=== PATIENT | male | born 1960 | race Caucasian/White ===

== ENCOUNTER → 2017-03-05 | Outpatient (CLI) | payer MEDICAID ==
[~2017-03-05] MED LIST: DIVA250T4 PO; HYDR-3240 PO; PHEN100C PO; PHEN60TA PO
== END | disposition home or self-care (01) ==
LOC: CFH 13:02
PROVIDERS: ATTEND Physician Assistant
DX: S22.030D Wedge compression fracture of third thoracic vertebra, subsequent encounter for fracture with routine healing (principal); S22.040D Wedge compression fracture of fourth thoracic vertebra, subsequent encounter for fracture with routine healing; S22.050D Wedge compression fracture of T5-T6 vertebra, subsequent encounter for fracture with routine healing; M51.44 Schmorl's nodes, thoracic region; M40.294 Other kyphosis, thoracic region; X58.XXXD Exposure to other specified factors, subsequent encounter; S92.334A Nondisplaced fracture of third metatarsal bone, right foot, initial encounter for closed fracture; S92.344A Nondisplaced fracture of fourth metatarsal bone, right foot, initial encounter for closed fracture; F32.9 Major depressive disorder, single episode, unspecified
CPT/HCPCS: 72146; 77080

== ENCOUNTER 2017-04-15 06:03 | Emergency (ER) | payer MEDICAID ==
[~2017-04-15] VITALS: Ht 162.6 cm; Wt 74.5 kg
[2017-04-15 06:05] VITALS: BP 133/82
[2017-04-15] MEDS ORDERED: IBUPROFEN 200 MG TABLET ONE (06:53)
[2017-04-15] MEDS ORDERED: IBUPROFEN 200 MG TABLET PO ONE (07:00)
[2017-04-15] MEDS ORDERED: BACITRACIN ZINC OINT 500U/GM, 0.9 GM ONE (07:07)
[2017-04-15 07:13] LABS: ASPARTATE AMINO TRANSFERASE 12 U/L (15-37); BLOOD UREA NITROGEN 14 mg/dL (7-18)
== END 2017-04-15 07:58 | disposition home or self-care (01) ==
LOC: ED 07:14
DX: S60.416A Abrasion of right little finger, initial encounter (principal); S60.414A Abrasion of right ring finger, initial encounter; S09.90XA Unspecified injury of head, initial encounter; F17.210 Nicotine dependence, cigarettes, uncomplicated; V19.9XXA Pedal cyclist (driver) (passenger) injured in unspecified traffic accident, initial encounter; Y93.89 Activity, other specified; Y99.8 Other external cause status; Y92.488 Other paved roadways as the place of occurrence of the external cause
CPT/HCPCS: 36415; 80053; 82306; 83970; 85025; 99284

== ENCOUNTER 2017-10-26 09:49 | Emergency (ER) | payer MEDICAID ==
[~2017-10-26] VITALS: Ht 172.7 cm; Wt 61.9 kg
[2017-10-26 09:50] VITALS: BP 114/78
== END 2017-10-26 10:23 | disposition home or self-care (01) ==
LOC: ED 10:17
DX: M79.672 Pain in left foot (principal); M79.671 Pain in right foot; G40.909 Epilepsy, unspecified, not intractable, without status epilepticus
CPT/HCPCS: 99281

== ENCOUNTER 2017-11-03 17:38 | Emergency (ER) | payer MEDICAID ==
[~2017-11-03] VITALS: Ht 167.6 cm; Wt 63.0 kg
[2017-11-03 17:50] VITALS: BP 110/65
== END 2017-11-03 18:57 | disposition home or self-care (01) ==
LOC: ED 18:55
DX: R53.83 Other fatigue (principal); F15.10 Other stimulant abuse, uncomplicated; G40.909 Epilepsy, unspecified, not intractable, without status epilepticus; M81.0 Age-related osteoporosis without current pathological fracture
CPT/HCPCS: 99283

== ENCOUNTER 2017-11-05 10:16 | Emergency (ER) | payer MEDICAID ==
[~2017-11-05] VITALS: Ht 170.2 cm; Wt 61.0 kg
[2017-11-05 10:19] VITALS: BP 118/80
[2017-11-05] MEDS ORDERED: DIVALPROEX 250 MG TAB.ER.24H PO ONE (11:00)
[2017-11-05] MEDS ORDERED: PHENYTOIN 100 MG CAPSULE PO ONE (11:00)
[2017-11-05] MEDS ORDERED: PHENOBARBITAL 30 MG TABLET PO ONE (11:00)
[2017-11-05] MEDS ORDERED: PHENYTOIN 100 MG CAPSULE ONE (11:01)
== END 2017-11-05 11:15 | disposition home or self-care (01) ==
LOC: ED 10:53
DX: G40.909 Epilepsy, unspecified, not intractable, without status epilepticus (principal); Z76.0 Encounter for issue of repeat prescription
CPT/HCPCS: 99284

== ENCOUNTER 2017-11-06 05:48 | Emergency (ER) | payer MEDICAID ==
[~2017-11-06] VITALS: Ht 170.2 cm; Wt 60.2 kg
[2017-11-06] MEDS ORDERED: PHENYTOIN 100 MG CAPSULE ONE (06:21)
[2017-11-06] MEDS ORDERED: PHENYTOIN 100 MG CAPSULE PO ONE (06:30)
[2017-11-06 06:37] VITALS: BP 129/74
== END 2017-11-06 06:40 | disposition home or self-care (01) ==
LOC: ED 06:09
DX: Z76.0 Encounter for issue of repeat prescription (principal); G40.909 Epilepsy, unspecified, not intractable, without status epilepticus; F17.200 Nicotine dependence, unspecified, uncomplicated
CPT/HCPCS: 99282

== ENCOUNTER 2018-06-13 18:36 | Emergency (ER) | payer MEDICAID ==
[~2018-06-13] VITALS: Ht 170.2 cm; Wt 66.3 kg
[2018-06-13 18:40] VITALS: BP 112/66
== END 2018-06-13 19:20 | disposition home or self-care (01) ==
LOC: ED 19:00
DX: Z76.0 Encounter for issue of repeat prescription (principal); G40.909 Epilepsy, unspecified, not intractable, without status epilepticus
CPT/HCPCS: 99283

== ENCOUNTER 2018-06-18 21:30 | Emergency (ER) | payer MEDICAID ==
[~2018-06-18] VITALS: Ht 167.6 cm; Wt 65.2 kg
[2018-06-18 21:33] VITALS: BP 132/87
== END 2018-06-18 22:09 | disposition home or self-care (01) ==
LOC: ED 22:08
DX: F15.20 Other stimulant dependence, uncomplicated (principal); F17.210 Nicotine dependence, cigarettes, uncomplicated; Z76.0 Encounter for issue of repeat prescription; G40.909 Epilepsy, unspecified, not intractable, without status epilepticus
CPT/HCPCS: 99283; 99406

== ENCOUNTER 2018-06-19 13:20 | Emergency (ER) | payer MEDICAID ==
[~2018-06-19] VITALS: Ht 165.1 cm; Wt 65.1 kg
[2018-06-19 13:24] VITALS: BP 120/77
[2018-06-19] MEDS ORDERED: PHENYTOIN 100 MG CAPSULE PO ONE (14:00)
[2018-06-19] MEDS ORDERED: PHENOBARBITAL 30 MG TABLET PO ONE (14:00)
[2018-06-19] MEDS ORDERED: PHENYTOIN 100 MG CAPSULE ONE (14:05)
== END 2018-06-19 14:27 | disposition home or self-care (01) ==
LOC: ED 13:52
DX: G40.909 Epilepsy, unspecified, not intractable, without status epilepticus (principal); Z76.0 Encounter for issue of repeat prescription; F17.200 Nicotine dependence, unspecified, uncomplicated
CPT/HCPCS: 99283

== ENCOUNTER 2018-09-15 02:57 | Emergency (ER) | payer MEDICAID ==
[~2018-09-15] VITALS: Ht 175.3 cm; Wt 80.0 kg
[2018-09-15] MEDS ORDERED: ONDANSETRON ODT 4 MG ONE (03:09)
[2018-09-15 03:30] LABS: BASOPHILS # (AUTO) 0.02 x10^3/uL (0-0.1); BASOPHILS % (AUTO) 0 % (0-1); EOSINOPHILS % (AUTO) 0 % (1-7); LYMPHOCYTES % (AUTO) 24 % (22-44); MD NO; MEAN CORPUSCULAR HEMOGLOBIN 31.3 pg (27.5-34.5); MEAN CORPUSCULAR HGB CONC 33.9 g/dL (33.2-36.2); MEAN CORPUSCULAR VOLUME 92.1 fL (81-97); MEAN PLATELET VOLUME 7.8 fL (7.4-10.4); MONOCYTES # (AUTO) 0.28 x10^3/uL (0.2-0.8); MONOCYTES % (AUTO) 5 % (2-9); NEUTROPHILS # (AUTO) 4.17 x10^3/uL (1.8-6.8); NEUTROPHILS % (AUTO) 71 % (42-75); PLATELET COUNT 339 x10^3/uL (130-400); RED BLOOD COUNT 5.02 x10^6/uL (4.38-5.82)
[2018-09-15] MEDS ORDERED: ONDANSETRON ODT 4 MG PO ONE (03:30)
[2018-09-15 03:35] LABS: MICROSCOPIC NOT IND
[2018-09-15 03:37] LABS: CULTURE INDICATED? NO
[2018-09-15 03:39] LABS: ALANINE AMINOTRANSFERASE 38 U/L (12-78); ALBUMIN 3.6 g/dL (3.4-5.0); ANION GAP 9 mmol/L (5-15); CALCIUM 8.4 mg/dL (8.5-10.1); CHLORIDE 104 mmol/L (98-107); CREATININE 0.83 mg/dL (0.7-1.3)
[2018-09-15 03:42] LABS: ALKALINE PHOSPHATASE 120 U/L (45-117); BILIRUBIN,TOTAL 0.3 mg/dL (0.2-1.0); TOTAL PROTEIN 7.4 g/dL (6.4-8.2)
[2018-09-15 04:20] VITALS: BP 137/78
== END 2018-09-15 05:49 | disposition home or self-care (01) ==
LOC: ED 05:09
DX: R11.2 Nausea with vomiting, unspecified (principal); R19.7 Diarrhea, unspecified; R10.84 Generalized abdominal pain; Z72.9 Problem related to lifestyle, unspecified; F20.9 Schizophrenia, unspecified
CPT/HCPCS: 36415; 80053; 81003; 83690; 85025; 93005; 99285; Q0162

== ENCOUNTER 2019-02-11 05:27 | Emergency (ER) | payer MEDICAID ==
[~2019-02-11] VITALS: Ht 162.6 cm; Wt 61.0 kg
[2019-02-11 05:32] VITALS: BP 150/78
--- NOTE | 2019-02-11 06:08 | NUR ---
pt ambulating in hallway with steady gait, states that he feels better at this time and is leaving, encouraged to stay, refuse to sign ama. To radiology
--- NOTE | 2019-02-11 06:18 | NUR ---
PT REFUSED TO SIGN AMA PAPERS. ESCORTED OUT.
== END 2019-02-11 06:20 | disposition left against medical advice (07) ==
LOC: ED 06:06
DX: F41.1 Generalized anxiety disorder (principal)
CPT/HCPCS: 99284

== ENCOUNTER 2019-03-14 18:39 | Emergency (ER) | payer MEDICAID ==
[~2019-03-14] VITALS: Ht 167.6 cm; Wt 64.3 kg
[2019-03-14 18:45] VITALS: BP 120/80
== END 2019-03-14 19:24 | disposition home or self-care (01) ==
LOC: ED 19:00
DX: M79.642 Pain in left hand (principal); M79.641 Pain in right hand; G40.909 Epilepsy, unspecified, not intractable, without status epilepticus; Z72.9 Problem related to lifestyle, unspecified; F17.200 Nicotine dependence, unspecified, uncomplicated
CPT/HCPCS: 99281

== ENCOUNTER 2019-06-12 14:43 | Emergency (ER) | payer MEDICAID ==
[~2019-06-12] VITALS: Ht 172.7 cm; Wt 61.6 kg
[2019-06-12 14:46] VITALS: BP 119/67
== END 2019-06-12 15:10 | disposition home or self-care (01) ==
LOC: ED 15:04
DX: G40.909 Epilepsy, unspecified, not intractable, without status epilepticus (principal); Z76.0 Encounter for issue of repeat prescription
CPT/HCPCS: 99283

== ENCOUNTER 2019-10-20 13:58 | Emergency (ER) | payer MEDICAID ==
[~2019-10-20] VITALS: Ht 170.2 cm; Wt 67.5 kg
--- NOTE | 2019-10-20 16:20 | NUR ---
BIOMEDICAL ENGINEERING TECHNICIAN: PT TO ROOM FROM [facility]UL[facility] WOOD
[2019-10-20] MEDS ORDERED: OMNIPAQUE 350 MG/ML, 100ML BOTTLE ONE (16:45)
--- NOTE | 2019-10-20 16:45 | NUR ---
ASSUMED CARE OF PATIENT IN ROOM 15. PT C/O MID ABD PAIN X 4 HOURS, NAUSEA BUT NO VOMITING.
[2019-10-20] MEDS ORDERED: VARD10TA4 PO (16:51)
[2019-10-20] MEDS ORDERED: SODIUM CHLORIDE FLUSH 10ML SYR IVF ONE (17:00)
[2019-10-20 17:26] LABS: BASOPHILS # (AUTO) 0.03 x10^3/uL (0-0.1); BASOPHILS % (AUTO) 1 % (0-1); EOSINOPHILS # (AUTO) 0.31 x10^3/uL (0-0.4); EOSINOPHILS % (AUTO) 7 % (1-7); LYMPHOCYTES # (AUTO) 1.89 x10^3/uL (1-3.4); LYMPHOCYTES % (AUTO) 41 % (22-44); MD NO; MEAN CORPUSCULAR HEMOGLOBIN 30.3 pg (27.5-34.5); MEAN CORPUSCULAR HGB CONC 32.9 g/dL (33.2-36.2); MEAN CORPUSCULAR VOLUME 91.9 fL (81-97); MEAN PLATELET VOLUME 8.1 fL (7.4-10.4); MONOCYTES # (AUTO) 0.48 x10^3/uL (0.2-0.8); MONOCYTES % (AUTO) 10 % (2-9); NEUTROPHILS # (AUTO) 1.91 x10^3/uL (1.8-6.8); NEUTROPHILS % (AUTO) 41 % (42-75); PLATELET COUNT 313 x10^3/uL (130-400)
[2019-10-20 17:31] LABS: ALBUMIN 3.3 g/dL (3.4-5.0); ANION GAP 6 mmol/L (5-15); CALCIUM 8.8 mg/dL (8.5-10.1); CHLORIDE 108 mmol/L (98-107)
[2019-10-20 17:36] LABS: ALANINE AMINOTRANSFERASE 21 U/L (12-78); ALKALINE PHOSPHATASE 94 U/L (45-117); BILIRUBIN,TOTAL 0.6 mg/dL (0.2-1.0); CREATININE 0.75 mg/dL (0.7-1.3); TOTAL PROTEIN 7.1 g/dL (6.4-8.2)
[2019-10-20] MEDS ORDERED: SODIUM CHLORIDE 0.9% 1,000ML IVBOLUS ONE (18:00)
--- NOTE | 2019-10-20 19:10 | NUR ---
REPORT FROM MENDEZ, RNS
[2019-10-20 19:17] LABS: MICROSCOPIC NOT IND
[2019-10-20 19:23] VITALS: BP 101/58
--- NOTE | 2019-10-20 19:23 | NUR ---
PT REQUESTING PAIN MEDICATIONS FOR ABD PAIN. PAIN 08/24. ERP NOTIFIED
[2019-10-20 19:28] LABS: CULTURE INDICATED? NO
[2019-10-20] MEDS ORDERED: ACETAMINOPHEN 500 MG TABLET ONE (19:28)
--- NOTE | 2019-10-20 19:31 | NUR ---
PT MEDICATED FOR PAIN PER EMAR. PT DIAGNOSTICS RESULTED, PLACED FOR RECHECK BY ERP.
[2019-10-20] MEDS ORDERED: ACETAMINOPHEN 500 MG TABLET PO ONE (20:00)
== END 2019-10-20 20:08 | disposition home or self-care (01) ==
LOC: ED 20:00
DX: R10.84 Generalized abdominal pain (principal); J18.9 Pneumonia, unspecified organism; F17.200 Nicotine dependence, unspecified, uncomplicated; G40.909 Epilepsy, unspecified, not intractable, without status epilepticus
CPT/HCPCS: 36415; 74177; 80053; 81003; 83880; 85025; 99284; J7030; Q9967

== ENCOUNTER 2019-11-19 06:17 | Emergency (ER) | payer MEDICAID ==
[~2019-11-19] VITALS: Ht 170.2 cm; Wt 67.6 kg
[~2019-11-19 06:17] MED LIST changes: +VARD10TA4 PO
--- NOTE | 2019-11-19 06:29 | NUR ---
CONTACT WITH PT, 59 YR OLD MALE HERE WITH C/O "FOR THE LAST WEEK, EVERY TIME I LAY DOWN I START COUGHING AND IT WONT QUIT"
[2019-11-19 07:25] LABS: BASOPHILS # (AUTO) 0.02 x10^3/uL (0-0.1); BASOPHILS % (AUTO) 0 % (0-1); EOSINOPHILS # (AUTO) 0.28 x10^3/uL (0-0.4); EOSINOPHILS % (AUTO) 5 % (1-7); LYMPHOCYTES % (AUTO) 31 % (22-44); MD NO; MEAN CORPUSCULAR HEMOGLOBIN 30.1 pg (27.5-34.5); MEAN CORPUSCULAR HGB CONC 32.8 g/dL (33.2-36.2); MEAN CORPUSCULAR VOLUME 91.9 fL (81-97); MEAN PLATELET VOLUME 7.7 fL (7.4-10.4); MONOCYTES # (AUTO) 0.56 x10^3/uL (0.2-0.8); MONOCYTES % (AUTO) 10 % (2-9); NEUTROPHILS # (AUTO) 3.02 x10^3/uL (1.8-6.8); NEUTROPHILS % (AUTO) 54 % (42-75); PLATELET COUNT 272 x10^3/uL (130-400); RED BLOOD COUNT 4.49 x10^6/uL (4.38-5.82); RED CELL DISTRIBUTION WIDTH 15.1 % (9.4-14.8)
[2019-11-19 07:33] LABS: ALBUMIN 3.5 g/dL (3.4-5.0); CALCIUM 8.5 mg/dL (8.5-10.1)
--- NOTE | 2019-11-19 07:34 | NUR ---
PT UPDATED ON POC. PLACED ON MONITORS. NO ACUTE DISTRESS NOTED. NO NEEDS EXPRESSED AT THIS TIME.
[2019-11-19 07:38] LABS: ALANINE AMINOTRANSFERASE 18 U/L (12-78); ALKALINE PHOSPHATASE 119 U/L (45-117); BILIRUBIN,TOTAL 0.3 mg/dL (0.2-1.0); CREATININE 0.69 mg/dL (0.7-1.3); TOTAL PROTEIN 7.2 g/dL (6.4-8.2); TROPONIN I < 0.015 ng/mL (0.000-0.045)
[2019-11-19] MEDS ORDERED: ALEN70TA6 PO (07:39)
[2019-11-19] MEDS ORDERED: LEVE500T8 PO (07:39)
[2019-11-19] MEDS ORDERED: CALC1CAP8 PO (07:39)
[2019-11-19 07:41] LABS: ANION GAP 6 mmol/L (5-15); CHLORIDE 109 mmol/L (98-107)
--- NOTE | 2019-11-19 08:30 | NUR ---
HOWARD NAVARRO AT BEDSIDE TO RE-EVAL PT. NO CHANGE IN CONDITION NOTED. NO NEEDS ESPRESSED AT THIS TIME.
[2019-11-19 08:35] VITALS: BP 123/78
--- NOTE | 2019-11-19 08:54 | NUR ---
PT UP TO BR, GAIT STEADY
--- NOTE | 2019-11-19 09:15 | NUR ---
PT DOZING INTERMITTENTLY, AROUSES EASILY. PT AWARE OF TO BE DC'D. NO NEEDS EXPRESSED AT THIS TIME.
== END 2019-11-19 09:45 | disposition home or self-care (01) ==
LOC: ED 06:36
DX: J20.8 Acute bronchitis due to other specified organisms (principal); J06.9 Acute upper respiratory infection, unspecified
CPT/HCPCS: 36415; 71046; 80053; 83880; 84484; 85025; 93005; 99284

== ENCOUNTER 2021-01-28 12:01 | Emergency (ER) | payer MEDICAID, OTHER ==
[~2021-01-28] VITALS: Ht 162.6 cm; Wt 68.4 kg
[~2021-01-28 12:01] MED LIST changes: +ALEN70TA77 PO; +CALC1CAP8 PO; +HYDR-1067 PO; -HYDR-3240 PO; +LEVE500T8 PO
[2021-01-28 12:04] VITALS: BP 112/74
--- NOTE | 2021-01-28 12:37 | NUR ---
PT HAS CO NOT FEELING WELL, HEAT FLASHES FOR LAST COUPLE WEEKS, NAUSEA, NO VOMITING. no cough/sob
[2021-01-28 12:54] LABS: BASOPHILS % (AUTO) 1 % (0-1); EOSINOPHILS % (AUTO) 4 % (1-7); LYMPHOCYTES % (AUTO) 29 % (22-44); MEAN CORPUSCULAR HEMOGLOBIN 30.9 pg (27.5-34.5); MEAN CORPUSCULAR HGB CONC 33.9 g/dL (33.2-36.2); MEAN PLATELET VOLUME 7.5 fL (7.4-10.4); MONOCYTES % (AUTO) 10 % (2-9); NEUTROPHILS % (AUTO) 57 % (42-75); PLATELET COUNT 312 x10^3/uL (130-400); RED BLOOD COUNT 5.06 x10^6/uL (4.38-5.82); RED CELL DISTRIBUTION WIDTH 14.7 % (9.4-14.8)
[2021-01-28 12:55] LABS: MD NO
[2021-01-28 13:02] LABS: ALBUMIN 3.6 g/dL (3.4-5.0); ANION GAP 4 mmol/L (5-15); CALCIUM 8.4 mg/dL (8.5-10.1); CHLORIDE 108 mmol/L (98-107)
[2021-01-28 13:32] LABS: CREATININE 0.69 mg/dL (0.7-1.3)
== END 2021-01-28 14:15 | disposition home or self-care (01) ==
LOC: ED 13:13
DX: R11.0 Nausea (principal); G40.909 Epilepsy, unspecified, not intractable, without status epilepticus
CPT/HCPCS: 36415; 80048; 80164; 80185; 82040; 84443; 85025; 99283